=== PATIENT | male | born 1985 | race Caucasian/White ===

== ENCOUNTER 2017-04-28 13:35 | Emergency (ER) | payer SELFPAY ==
[~2017-04-28] VITALS: Ht 182.9 cm; Wt 81.6 kg
[2017-04-28] MEDS ORDERED: NALOXONE 0.4 MG/ML VIAL. ONE (14:26)
[2017-04-28] MEDS ORDERED: NALOXONE 0.4 MG/ML VIAL. IV ONE (14:30)
[2017-04-28] MEDS ORDERED: IV NORMAL SALINE 1000ML BAG 1,000 ML IV ONE (14:30)
[2017-04-28 14:38] LABS: BASO # 0.1 x10^3/uL (0.0-0.2); BASO % 2 % (0-3); EOS % 5 % (0-3); HEMATOCRIT 47.1 % (39.0-53.0); LYMPH # 3.3 x10^3/uL (1.0-4.8); LYMPH % 43 % (24-48); MEAN CORPUSCULAR HEMOGLOBIN 34 pg (25-35); MEAN CORPUSCULAR HGB CONC 34 g/dL (31-37); MEAN CORPUSCULAR VOLUME 99 fL (79-100); MONO % 5 % (0-9); NEUT % 45 % (31-73); PLATELET COUNT 387 x10^3/uL (140-400); RED BLOOD COUNT 4.77 x10^6/uL (4.30-5.70); RED CELL DISTRIBUTION WIDTH 12.3 % (11.5-14.5); WHITE BLOOD COUNT 7.6 x10^3/uL (4.0-11.0)
[2017-04-28 14:49] LABS: INR 0.9 (0.8-1.1); PROTHROMBIN TIME PATIENT 11.5 SEC (11.7-14.0)
[2017-04-28 14:50] LABS: CALCIUM 8.5 mg/dL (8.5-10.1); CREATININE 0.8 mg/dL (0.7-1.3); GFR 112.8; POTASSIUM 4.3 mmol/L (3.5-5.1)
[2017-04-28 14:57] LABS: TOTAL BILIRUBIN 0.2 mg/dL (0.2-1.0); TOTAL PROTEIN 8.2 g/dL (6.4-8.2)
[2017-04-28] MEDS ORDERED: NICOTINE 21MG PATCH. TD SCH (16:00)
[2017-04-28] MEDS ORDERED: IBUPROFEN 400 MG TABLET. PO PRN (16:45)
[2017-04-28] MEDS ORDERED: chlordiazePOXIDE HCL 25 MG CAPSULE PO PRN (16:45)
[2017-04-28] MEDS ORDERED: ALPRAZolam 0.25 MG TABLET PO PRN (16:45)
[2017-04-28] MEDS ORDERED: ONDANSETRON PF 4 MG/2 ML VIAL. IV PRN ×2 (16:45→17:00)
--- NOTE | 2017-04-28 16:49 | PHYS DOC ---
Past Medical History Past Medical History: Unknown Past Surgical History: Other Additional Past Surgical Histo: unknown Alcohol Use: Heavy Drug Use: Other Social History Narrative: unknown history Adult General Chief Complaint Chief Complaint: ALCOHOL INTOXICATION HPI HPI Patient is a 31 year old male brought by EMS after being found down and unconscious. History is from EMS. Evidently the patient was very intoxicated, his girlfriend dropped him off at home, he did not make it into the house, he was found some hours later laying on the ground, wet, unconscious, and hypothermic. History is that the patient is a heavy drinker. There is no other history available at the time of presentation. Review of Systems Review of Systems Review of systems not able to be obtained due to the patient's altered mental status Current Medications Current Medications Current Medications Medications (Trade) Dose Ordered Sig/Colby Start Time Stop Time Status Last Admin Dose Admin Alprazolam (Xanax) 0.25 mg PRN Q8HRS PRN 04/28/17 16:45 Chlordiazepoxide (Librium) 25 mg PRN Q6HRS PRN 04/28/17 16:45 Ibuprofen (Motrin) 400 mg PRN Q6HRS PRN 04/28/17 16:45 Naloxone HCl (Narcan) 0.4 mg 1X ONCE 04/28/17 14:30 04/28/17 15:19 DC 04/28/17 14:30 0.4 MG Nicotine (Nicoderm Cq 21mg) 1 patch DAILY 04/28/17 16:00 04/28/17 16:01 1 PATCH Ondansetron HCl (Zofran) 4 mg PRN Q6HRS PRN 04/28/17 16:45 Sodium Chloride 1,000 ml @ 1,000 mls/hr 1X ONCE 04/28/17 14:30 04/28/17 15:29 DC 04/28/17 14:45 1,000 MLS/HR Allergies Allergies Allergies Coded Allergies Type Severity Reaction Last Updated Verified No Known Drug Allergies 04/28/17 No Physical Exam Physical Exam Constitutional: Well developed, well nourished, appears to be sleeping, smells of alcohol, no evidence of trauma. Rectal temp 95, hypothermic. HENT: Normocephalic, atraumatic, bilateral external ears normal, oropharynx moist, no oral exudates, nose normal. [] Eyes: Pupils 2 mm, constricted, nonreactive, conjunctiva normal, no discharge. [ ] Neck: Normal range of motion, no stridor. [] Cardiovascular:Heart rate regular rhythm, no murmur [] Lungs & Thorax: Bilateral breath sounds clear to auscultation [] Abdomen: Bowel sounds normal, soft, no tenderness, no masses, no pulsatile masses. [] Skin: Warm, dry, no erythema, no rash. [] Extremities: No tenderness, no cyanosis, no clubbing, ROM intact, no edema. Questionable venipuncture site antecubital, no chronic-appearing venipunctures. Neurologic: Patient did withdraw to IV start per nursing staff. He does not respond to voice, shaking, or sternal rub for me. Patient appears to be asleep, he is breathing on his own, handling his secretions normally. Current Patient Data Vital Signs Vital Signs Date Time Temp Pulse Resp B/P (MAP) Pulse Ox O2 Delivery O2 Flow Rate FiO2 04/28/17 16:20 98.4 98.4 04/28/17 15:50 100 18 122/74 (90) 97 04/28/17 13:40 Room Air Lab Values Laboratory Tests Test 04/28/17 14:20 White Blood Count 7.6 x10^3/uL (4.0-11.0) Red Blood Count 4.77 x10^6/uL (4.30-5.70) Hemoglobin 16.0 g/dL (13.0-17.5) Hematocrit 47.1 % (39.0-53.0) Mean Corpuscular Volume 99 fL (79-100) Mean Corpuscular Hemoglobin 34 pg (25-35) Mean Corpuscular Hemoglobin Concent 34 g/dL (31-37) Red Cell Distribution Width 12.3 % (11.5-14.5) Platelet Count 387 x10^3/uL (140-400) Neutrophils (%) (Auto) 45 % (31-73) Lymphocytes (%) (Auto) 43 % (24-48) Monocytes (%) (Auto) 5 % (0-9) Eosinophils (%) (Auto) 5 % (0-3) H Basophils (%) (Auto) 2 % (0-3) Neutrophils # (Auto) 3.4 x10^3uL (1.8-7.7) Lymphocytes # (Auto) 3.3 x10^3/uL (1.0-4.8) Monocytes # (Auto) 0.4 x10^3/uL (0.0-1.1) Eosinophils # (Auto) 0.3 x10^3/uL (0.0-0.7) Basophils # (Auto) 0.1 x10^3/uL (0.0-0.2) Prothrombin Time 11.5 SEC (11.7-14.0) L Prothrombin Time INR 0.9 (0.8-1.1) PTT 28 SEC (24-38) Sodium Level 151 mmol/L (136-145) H Potassium Level 4.3 mmol/L (3.5-5.1) Chloride Level 110 mmol/L (98-107) H Carbon Dioxide Level 31 mmol/L (21-32) Anion Gap 10 (6-14) Blood Urea Nitrogen 4 mg/dL (8-26) L Creatinine 0.8 mg/dL (0.7-1.3) Estimated GFR (Cockcroft-Gault) 112.8 BUN/Creatinine Ratio 5 (6-20) L Glucose Level 94 mg/dL (70-99) Calcium Level 8.5 mg/dL (8.5-10.1) Total Bilirubin 0.2 mg/dL (0.2-1.0) Aspartate Amino Transferase (AST) 68 U/L (15-37) H Alanine Aminotransferase (ALT) 91 U/L (16-63) H Alkaline Phosphatase 69 U/L (46-116) Total Protein 8.2 g/dL (6.4-8.2) Albumin 4.0 g/dL (3.4-5.0) Albumin/Globulin Ratio 1.0 (1.0-1.7) Ethyl Alcohol Level 536 mg/dL (0-10) *H Laboratory Tests 04/28/17 14:20 Laboratory Tests 04/28/17 14:20 EKG EKG [] Radiology/Procedures Radiology/Procedures [] Course & Med Decision Making Course & Med Decision Making Pertinent Labs and Imaging studies reviewed. (See chart for details) 31-year-old male presents by EMS unconscious and hypothermic after being outside and wet for an unknown length of time. All of his wet clothes were removed by ED nursing staff and he was placed under the active rewarming blankets. There was no response to IV Narcan. Labs were drawn. IV fluids were initiated, warmth. IV alcohol level 536. I discussed the case with Dr. Gomez, [facility]. She will admit the patient. Patient became more alert while waiting to be admitted. He did eat a little bit but then vomited. I revisited the patient, he was able to guess that he was at a hospital but did not know which one. He wanted to be discharged. I don't feel that that is safe. The patient is still extremely intoxicated. ED RN said that when he sat up he almost fell over. He is not safe for a trial of ambulation. I visited with the patient, his sister, and his girlfriend. We discussed that he needs to be admitted for his own safety until he mary kate up enough to be able to ambulate. I encouraged the sister and girlfriend to go ahead and leave since he keeps returning to the idea that he wants them to take him home. Patient remained stable, sitting up and looking around, he was somewhat agitated from time to time so refurbish technician sat with him while he was waiting for a room. The patient was admitted but had to stay in the ED as a hold because they do not have staffing to make him a one on one upstairs. He continued to improve slightly. He continued to state that he wanted to be discharged. ED nursing staff talked to the patient's family multiple times on the phone. We had several conversations about the patient's disposition. I don't believe the patient is appropriate for discharge. Even though he is able to ambulate and talk, he is still obviously very intoxicated by blood level and by his behavior. I don't believe he is safe to be discharged without someone to watch him. If he had someone here to take him home I would agree to disposition discharge at this time but no family member is willing to come in and pick him up. ED RN reports that the patient's father will only come get him if the patient is agreeable to go to detox, and the patient refuses to go to detox. ED RN is working to make a compromise with the patient and the patient's family as far as disposition. [] Dragon Disclaimer Dragon Disclaimer This electronic medical record was generated, in whole or in part, using a voice recognition dictation system. Departure Departure Impression: Primary Impression: Alcohol intoxication Additional Impressions: Altered mental status Hypothermia Disposition: 09 ADMITTED INPATIENT Admitting Physician: Zenaida Gomez Condition: STABLE Referrals: UNKNOWN PCP NAME (PCP) Problem Qualifiers PAM LOCKWOOD MD Apr 28, 2017 16:49
[2017-04-28] MEDS ORDERED: IV NORMAL SALINE 1000ML BAG 1,000 ML IV SCH (16:50)
[2017-04-28] MEDS ORDERED: MULTIVIT INFUSN,ADULT 4,VIT K 10 ML, THIAMINE 100 MG, FOLIC ACID 1 MG in IV DEXTROSE 5 ... IV SCH (17:00)
--- NOTE | 2017-04-28 17:16 | PDOC1 ---
History and Physical Date of Admission Date of Admission DATE: 04/28/17 TIME: 17:10 Identification/Chief Complaint Chief Complaint Confusion, intoxicated with alcohol Problems: Source Source: Caregiver, Chart review, Patient History of Present Illness History of Present Illness 31-year-old male with no significant past medical history unfortunately is a heavy drinker. Was found down on the ground ,hypothermic, change in mental status. Now he is more awake with the sister at bedside after ER mx. Seen in emergency room #4. Alcohol levels at 536 was hypothermic 95 rectal temperature. The rest of the labs chest x-ray looks okay. Laboratory hypernatremia 151, potassium 4. chloride 110 creatinine and BUN normal. AST mildly elevated 68 ALT 91. Patient wants to go home. Patient started to eat some diet but then vomited. Patient sat up in bed but almost fell over hence patient is admitted because of gait instability and unable to tolerate by mouth. Patient wants to go home. Sister wants him to be admitted which I agree. Patient will be started on banana bag, CIWA protocol, PT OT. As per sister they have an appointment to see some [facility] program for alcohol cessation. Patient might sign out AMA. Alcohol level is 536. Past Medical History Cardiovascular: No pertinent hx Pulmonary: No pertinent hx GI: No pertinent hx Heme/Onc: No pertinent hx Hepatobiliary: No pertinent hx Psych: No pertinent hx Rheumatologic: No pertinent hx Infectious disease: No pertinent hx ENT: No pertinent hx Renal/: No pertinent hx Endocrine: No pertinent hx Dermatology: No pertinent hx Past Surgical History Past Surgical History: No pertinent history Family History Family History: Family History Unknown Social History Smoke: No ALCOHOL: heavy Drugs: None Current Problem List Problem List Problems Medical Problems: (1) Altered mental status Status: Acute (2) Hypothermia Status: Acute Problems: Current Medications Current Medications Current Medications Naloxone HCl (Narcan) 0.4 mg STK-MED ONCE .ROUTE ; Start 04/28/17 at 14:26; Stop 04/28/17 at 14:27; Status DC Naloxone HCl (Narcan) 0.4 mg 1X ONCE IV Last administered on 04/28/17t 14:30 ; Start 04/28/17 at 14:30; Stop 04/28/17 at 15:19; Status DC Sodium Chloride 1,000 ml @ 1,000 mls/hr 1X ONCE IV Last administered on 04/28 14:45; Start 04/28/17 at 14:30; Stop 04/28/17 at 15:29; Status DC Nicotine (Nicoderm Cq 21mg) 1 patch DAILY TD Last administered on 04/28/17 16 :01; Start 04/28/17 at 16:00 Chlordiazepoxide (Librium) 25 mg PRN Q6HRS PRN PO ANXIETY / AGITATION; Start 04/28/17 at 16:45 Alprazolam (Xanax) 0.25 mg PRN Q8HRS PRN PO ANXIETY / AGITATION; Start at 16:45 Multivitamins 10 ml/Thiamine HCl 100 mg/Folic Acid 1 mg/Dextrose/ Sodium Chloride 1,011.2 ml @ 100.02 mls/hr DAILY IV Last administered on 04/28/17 16:53; Start 04/28/17 at 17:00 Ondansetron HCl (Zofran) 4 mg PRN Q6HRS PRN IV NAUSEA/VOMITING; Start at 16:45 Ibuprofen (Motrin) 400 mg PRN Q6HRS PRN PO INFLAMMATION; Start 04/28/17 at 16: 45 Ondansetron HCl (Zofran) 4 mg PRN Q8HRS PRN IV NAUSEA/VOMITING; Start at 17:00; Stop 04/29/17 at 16:59 Sodium Chloride 1,000 ml @ 100 mls/hr Q10H IV ; Start 04/28/17 at 16:50; Stop 04/29/17 at 16:49 Allergies Allergies: Coded Allergies: No Known Drug Allergies (Unverified , 04/28/17) ROS Review of System gait stable, some vomiting, but limited ROS as patient wants to go home, minimally cooperative Physical Exam Physical Exam Physical Exam General: Alert, Oriented X3, Cooperative, No acute distress HEENT: Atraumatic, PERRLA Lungs: Normal air movement, Other (wheezy) Heart: S1S2, RRR, no thrills, no gallops, no murmurs Cardiovascular: S1, S2 Abdomen: Normal bowel sounds, Soft, No tenderness, No hepatosplenomegaly, No masses, Other (obese) Rectal Exam: not examined PELVIC: Nml ext genitalia Extremities: No rashes, no edema, pulses full and equal Skin: No rashes, No breakdown, No significant lesion Neuro: Normal gait, Normal speech, Strength at 5/5 X4 ext, Normal tone, Sensation intact, Cranial nerves 3-12 NL, Reflexes 2+ Psych/Mental Status: Mental status NL, Mood NL Vitals Vitals Vital Signs Date Time Temp Pulse Resp B/P (MAP) Pulse Ox O2 Delivery O2 Flow Rate FiO2 04/28/17 16:20 98.4 98.4 04/28/17 13:40 77 19 127/80 (96) 99 Room Air Labs Labs Laboratory Tests Test 04/28/17 14:20 White Blood Count 7.6 x10^3/uL (4.0-11.0) Red Blood Count 4.77 x10^6/uL (4.30-5.70) Hemoglobin 16.0 g/dL (13.0-17.5) Hematocrit 47.1 % (39.0-53.0) Mean Corpuscular Volume 99 fL (79-100) Mean Corpuscular Hemoglobin 34 pg (25-35) Mean Corpuscular Hemoglobin Concent 34 g/dL (31-37) Red Cell Distribution Width 12.3 % (11.5-14.5) Platelet Count 387 x10^3/uL (140-400) Neutrophils (%) (Auto) 45 % (31-73) Lymphocytes (%) (Auto) 43 % (24-48) Monocytes (%) (Auto) 5 % (0-9) Eosinophils (%) (Auto) 5 % (0-3) Basophils (%) (Auto) 2 % (0-3) Neutrophils # (Auto) 3.4 x10^3uL (1.8-7.7) Lymphocytes # (Auto) 3.3 x10^3/uL (1.0-4.8) Monocytes # (Auto) 0.4 x10^3/uL (0.0-1.1) Eosinophils # (Auto) 0.3 x10^3/uL (0.0-0.7) Basophils # (Auto) 0.1 x10^3/uL (0.0-0.2) Prothrombin Time 11.5 SEC (11.7-14.0) Prothromb Time International Ratio 0.9 (0.8-1.1) Activated Partial Thromboplast Time 28 SEC (24-38) Sodium Level 151 mmol/L (136-145) Potassium Level 4.3 mmol/L (3.5-5.1) Chloride Level 110 mmol/L (98-107) Carbon Dioxide Level 31 mmol/L (21-32) Anion Gap 10 (6-14) Blood Urea Nitrogen 4 mg/dL (8-26) Creatinine 0.8 mg/dL (0.7-1.3) Estimated GFR (Cockcroft-Gault) 112.8 BUN/Creatinine Ratio 5 (6-20) Glucose Level 94 mg/dL (70-99) Calcium Level 8.5 mg/dL (8.5-10.1) Total Bilirubin 0.2 mg/dL (0.2-1.0) Aspartate Amino Transf (AST/SGOT) 68 U/L (15-37) Alanine Aminotransferase (ALT/SGPT) 91 U/L (16-63) Alkaline Phosphatase 69 U/L (46-116) Total Protein 8.2 g/dL (6.4-8.2) Albumin 4.0 g/dL (3.4-5.0) Albumin/Globulin Ratio 1.0 (1.0-1.7) Ethyl Alcohol Level 536 mg/dL (0-10) Laboratory Tests Test 04/28/17 14:20 White Blood Count 7.6 x10^3/uL (4.0-11.0) Red Blood Count 4.77 x10^6/uL (4.30-5.70) Hemoglobin 16.0 g/dL (13.0-17.5) Hematocrit 47.1 % (39.0-53.0) Mean Corpuscular Volume 99 fL (79-100) Mean Corpuscular Hemoglobin 34 pg (25-35) Mean Corpuscular Hemoglobin Concent 34 g/dL (31-37) Red Cell Distribution Width 12.3 % (11.5-14.5) Platelet Count 387 x10^3/uL (140-400) Neutrophils (%) (Auto) 45 % (31-73) Lymphocytes (%) (Auto) 43 % (24-48) Monocytes (%) (Auto) 5 % (0-9) Eosinophils (%) (Auto) 5 % (0-3) Basophils (%) (Auto) 2 % (0-3) Neutrophils # (Auto) 3.4 x10^3uL (1.8-7.7) Lymphocytes # (Auto) 3.3 x10^3/uL (1.0-4.8) Monocytes # (Auto) 0.4 x10^3/uL (0.0-1.1) Eosinophils # (Auto) 0.3 x10^3/uL (0.0-0.7) Basophils # (Auto) 0.1 x10^3/uL (0.0-0.2) Prothrombin Time 11.5 SEC (11.7-14.0) Prothromb Time International Ratio 0.9 (0.8-1.1) Activated Partial Thromboplast Time 28 SEC (24-38) Sodium Level 151 mmol/L (136-145) Potassium Level 4.3 mmol/L (3.5-5.1) Chloride Level 110 mmol/L (98-107) Carbon Dioxide Level 31 mmol/L (21-32) Anion Gap 10 (6-14) Blood Urea Nitrogen 4 mg/dL (8-26) Creatinine 0.8 mg/dL (0.7-1.3) Estimated GFR (Cockcroft-Gault) 112.8 BUN/Creatinine Ratio 5 (6-20) Glucose Level 94 mg/dL (70-99) Calcium Level 8.5 mg/dL (8.5-10.1) Total Bilirubin 0.2 mg/dL (0.2-1.0) Aspartate Amino Transf (AST/SGOT) 68 U/L (15-37) Alanine Aminotransferase (ALT/SGPT) 91 U/L (16-63) Alkaline Phosphatase 69 U/L (46-116) Total Protein 8.2 g/dL (6.4-8.2) Albumin 4.0 g/dL (3.4-5.0) Albumin/Globulin Ratio 1.0 (1.0-1.7) Ethyl Alcohol Level 536 mg/dL (0-10) VTE Prophylaxis Ordered VTE Prophylaxis Devices: Yes VTE Pharmacological Prophylaxi: Yes Assessment/Plan Assessment/Plan assesment: Alcohol intoxication, levels 536 Gait instability Hypothermia found outside on ground Metabolic encephalopathy, toxic encephalopathy secondary to alcohol, resolved, hypernatremia secondary to poor by mouth, elevated LFTs in an alcoholic plan: Admit Banana bag CIWA protocol Benzos when necessary PT OT Precaution Liquid diet for now then a BALJIT Tania bag I'm afraid he might sign signout AMA, if this happens sister needs to bring him home as I am uncomfortable sending him home alone. Her hypernatremia, BMP tomorrow seen At the emergency room discussed with him and sister significant time JESUSITA DIETRICH MD Apr 28, 2017 17:16
[2017-04-28 18:50] VITALS: BP 135/88
--- NOTE | 2017-04-28 21:52 | PDOC3 ---
Discharge Summary Visit Information Date of Admission: Apr 28, 2017 Date of Discharge: Apr 28, 2017 Admitting Diagnosis Comment: Alcohol intoxication, levels 536 Gait instability Hypothermia found outside on ground Metabolic encephalopathy, toxic encephalopathy secondary to alcohol, resolved, hypernatremia secondary to poor by mouth, elevated LFTs in an alcoholic Final Diagnosis Problems Medical Problems: (1) Altered mental status Status: Acute (2) Hypothermia Status: Acute Brief Hospital Course Allergies Allergies Coded Allergies Type Severity Reaction Last Updated Verified No Known Drug Allergies 04/28/17 No Vital Signs Vital Signs Date Time Temp Pulse Resp B/P (MAP) Pulse Ox O2 Delivery O2 Flow Rate FiO2 04/28/17 17:08 117 20 122/76 (91) 98 Room Air 04/28/17 16:20 98.4 98.4 Lab Results Laboratory Tests Test 04/28/17 14:20 White Blood Count 7.6 x10^3/uL (4.0-11.0) Red Blood Count 4.77 x10^6/uL (4.30-5.70) Hemoglobin 16.0 g/dL (13.0-17.5) Hematocrit 47.1 % (39.0-53.0) Mean Corpuscular Volume 99 fL (79-100) Mean Corpuscular Hemoglobin 34 pg (25-35) Mean Corpuscular Hemoglobin Concent 34 g/dL (31-37) Red Cell Distribution Width 12.3 % (11.5-14.5) Platelet Count 387 x10^3/uL (140-400) Neutrophils (%) (Auto) 45 % (31-73) Lymphocytes (%) (Auto) 43 % (24-48) Monocytes (%) (Auto) 5 % (0-9) Eosinophils (%) (Auto) 5 % (0-3) Basophils (%) (Auto) 2 % (0-3) Neutrophils # (Auto) 3.4 x10^3uL (1.8-7.7) Lymphocytes # (Auto) 3.3 x10^3/uL (1.0-4.8) Monocytes # (Auto) 0.4 x10^3/uL (0.0-1.1) Eosinophils # (Auto) 0.3 x10^3/uL (0.0-0.7) Basophils # (Auto) 0.1 x10^3/uL (0.0-0.2) Prothrombin Time 11.5 SEC (11.7-14.0) Prothromb Time International Ratio 0.9 (0.8-1.1) Activated Partial Thromboplast Time 28 SEC (24-38) Sodium Level 151 mmol/L (136-145) Potassium Level 4.3 mmol/L (3.5-5.1) Chloride Level 110 mmol/L (98-107) Carbon Dioxide Level 31 mmol/L (21-32) Anion Gap 10 (6-14) Blood Urea Nitrogen 4 mg/dL (8-26) Creatinine 0.8 mg/dL (0.7-1.3) Estimated GFR (Cockcroft-Gault) 112.8 BUN/Creatinine Ratio 5 (6-20) Glucose Level 94 mg/dL (70-99) Calcium Level 8.5 mg/dL (8.5-10.1) Total Bilirubin 0.2 mg/dL (0.2-1.0) Aspartate Amino Transf (AST/SGOT) 68 U/L (15-37) Alanine Aminotransferase (ALT/SGPT) 91 U/L (16-63) Alkaline Phosphatase 69 U/L (46-116) Total Protein 8.2 g/dL (6.4-8.2) Albumin 4.0 g/dL (3.4-5.0) Albumin/Globulin Ratio 1.0 (1.0-1.7) Ethyl Alcohol Level 536 mg/dL (0-10) Laboratory Tests Test 04/28/17 14:20 White Blood Count 7.6 x10^3/uL (4.0-11.0) Red Blood Count 4.77 x10^6/uL (4.30-5.70) Hemoglobin 16.0 g/dL (13.0-17.5) Hematocrit 47.1 % (39.0-53.0) Mean Corpuscular Volume 99 fL (79-100) Mean Corpuscular Hemoglobin 34 pg (25-35) Mean Corpuscular Hemoglobin Concent 34 g/dL (31-37) Red Cell Distribution Width 12.3 % (11.5-14.5) Platelet Count 387 x10^3/uL (140-400) Neutrophils (%) (Auto) 45 % (31-73) Lymphocytes (%) (Auto) 43 % (24-48) Monocytes (%) (Auto) 5 % (0-9) Eosinophils (%) (Auto) 5 % (0-3) Basophils (%) (Auto) 2 % (0-3) Neutrophils # (Auto) 3.4 x10^3uL (1.8-7.7) Lymphocytes # (Auto) 3.3 x10^3/uL (1.0-4.8) Monocytes # (Auto) 0.4 x10^3/uL (0.0-1.1) Eosinophils # (Auto) 0.3 x10^3/uL (0.0-0.7) Basophils # (Auto) 0.1 x10^3/uL (0.0-0.2) Prothrombin Time 11.5 SEC (11.7-14.0) Prothromb Time International Ratio 0.9 (0.8-1.1) Activated Partial Thromboplast Time 28 SEC (24-38) Sodium Level 151 mmol/L (136-145) Potassium Level 4.3 mmol/L (3.5-5.1) Chloride Level 110 mmol/L (98-107) Carbon Dioxide Level 31 mmol/L (21-32) Anion Gap 10 (6-14) Blood Urea Nitrogen 4 mg/dL (8-26) Creatinine 0.8 mg/dL (0.7-1.3) Estimated GFR (Cockcroft-Gault) 112.8 BUN/Creatinine Ratio 5 (6-20) Glucose Level 94 mg/dL (70-99) Calcium Level 8.5 mg/dL (8.5-10.1) Total Bilirubin 0.2 mg/dL (0.2-1.0) Aspartate Amino Transf (AST/SGOT) 68 U/L (15-37) Alanine Aminotransferase (ALT/SGPT) 91 U/L (16-63) Alkaline Phosphatase 69 U/L (46-116) Total Protein 8.2 g/dL (6.4-8.2) Albumin 4.0 g/dL (3.4-5.0) Albumin/Globulin Ratio 1.0 (1.0-1.7) Ethyl Alcohol Level 536 mg/dL (0-10) Brief Hospital Course Mr. Richter is a 31 old [sex] who presented with [ ]31-year-old male with no significant past medical history unfortunately is a heavy drinker. Was found down on the ground ,hypothermic, change in mental status. Now he is more awake with the sister at bedside after ER mx. Seen in emergency room #4. Alcohol levels at 536 was hypothermic 95 rectal temperature. The rest of the labs chest x-ray looks okay. Laboratory hypernatremia 151, potassium 4. chloride 110 creatinine and BUN normal. AST mildly elevated 68 ALT 91. Patient wants to go home. Patient started to eat some diet but then vomited. Patient sat up in bed but almost fell over hence patient is admitted because of gait instability and unable to tolerate by mouth. Patient wants to go home. Sister wants him to be admitted which I agree. Patient will be started on banana bag, CIWA protocol, PT OT. As per sister they have an appointment to see some [facility] program for alcohol cessation. Patient might sign out AMA. Alcohol level is 536. COURSe: Detox facility able to accept pt tonight. FAmily will drive him there dc order done 2 notes today Dw COMMERCIAL DRIVER'S LICENSE DRIVERidentification technician Information Condition at Discharge: Stable Disposition/Orders: Other (detox facility) JESUSITA DIETRICH MD Apr 28, 2017 21:52
--- NOTE | 2017-04-29 06:27 | EKG ---
[facility] [address] [place] [address] Test Date: 2017-04-28 Test Time: 13:53:27 Pat Name: CHE CARRINGTON Department: Room: ED HOLD 4 Gender: M Basketball Coach: JESICA : 1985 Requested By: JESUSITA DIETRICH Order Number: [id number] Reading MD: Measurements Intervals [place] Rate: 82 P: 69 [place]: 124 QRS: 52 QRSD: 106 T: 64 QT: 430 QTc: 506 Interpretive Statements SINUS RHYTHM INCOMPLETE RIGHT BUNDLE BRANCH BLOCK QRS(T) CONTOUR ABNORMALITY CONSIDER ANTEROLATERAL MYOCARDIAL DAMAGE PROLONGED QT POSSIBLY ABNORMAL ECG RI6.01 No previous ECG available for comparison
== END 2017-04-28 22:34 | disposition home or self-care (01) ==
LOC: ER 13:35 → ED HOLD 16:46 → UNDOADMIN 16:46 → ER 22:34 → ED HOLD 22:34
DX: F10.129 Alcohol abuse with intoxication, unspecified (principal); R41.82 Altered mental status, unspecified; T68.XXXA Hypothermia, initial encounter
CPT/HCPCS: 36415; 80053; 85025; 85610; 85730; 93005; 96361; 96365; 96366; 96375; 99285; G0480; J2310; J7030